=== PATIENT | female | born 1995 | race Caucasian/White ===

== ENCOUNTER 2016-11-15 01:32 | Emergency (ER) | payer OTHER ==
[~2016-11-15] VITALS: Ht 152.4 cm; Wt 59.0 kg
--- NOTE | 2016-11-15 02:40 | REPUSA ---
CLINICAL HISTORY: Facial numbness. TECHNIQUE: Multiple axial brain CT scan sections were obtained from base to vertex without contrast a dministration. COMMENTS: The study shows normal configuration of sella turcica. There are no intra or extra-axial collections. There is no mass effect or midline shift. There is no evidence of hematoma formation. No hydrocephal us is present. No abnormal calcifications are noted. No significant abnormalities are seen either in the posterior fossa or supratentorial compartment. Mild chronic mucosal inflammatory changes of the ethmoid air cells. The sinuses and mastoid air cells are patent. IMPRESSION: Mild chronic mucosal inflammatory changes of the ethmoid air cells. No evidence of acute intracranial pathology. Thank you for your kind referral of this patient.
[2016-11-15 03:13] VITALS: BP 120/72
== END 2016-11-15 03:14 | disposition home or self-care (01) ==
LOC: M ED 02:39
DX: R20.8 Other disturbances of skin sensation (principal); F32.9 Major depressive disorder, single episode, unspecified; F41.9 Anxiety disorder, unspecified; F19.10 Other psychoactive substance abuse, uncomplicated; F17.200 Nicotine dependence, unspecified, uncomplicated; Z88.1 Allergy status to other antibiotic agents

== ENCOUNTER 2017-01-03 00:52 | Emergency (ER) | payer MEDICAID, OTHER ==
[~2017-01-03] VITALS: Ht 152.4 cm; Wt 70.0 kg
[2017-01-03] MEDS ORDERED: ACETAMINOPHEN TAB 650MG DOSE (2X325MG) As Ordered ONE (03:52)
[2017-01-03] MEDS ORDERED: ACETAMINOPHEN TAB 650MG DOSE (2X325MG) PO ONE (04:00)
[2017-01-03] MEDS ORDERED: NS 1,000 ML IV ONE (04:45)
[2017-01-03] MEDS ORDERED: KETOROLAC 30 MG/ML VIAL (J1885) IV ONE (04:45)
[2017-01-03] MEDS ORDERED: CIPROFLOXACIN 400 MG in APPROPRIATE DILUENT 1 EA IV ONE (04:45)
[2017-01-03] MEDS ORDERED: ONDANSETRON 4MG/2ML VIAL (J2405) IV ONE (04:45)
[2017-01-03 05:48] LABS: BASO # 0.1 K/mm3 (0.0-0.2); BASO % 0.3 % (0.0-1.0); EOS # 0.4 K/mm3 (0.0-0.50); EOS % 1.7 % (0.0-3.0); LARGE UNSTAINED CELL # 0.1 K/mm3 (0.0-0.4); LARGE UNSTAINED CELL % 0.6 % (0.0-4.0); LYMPH # 1.4 K/mm3 (1.5-6.5); LYMPH % 6.3 % (24.0-44.0); MEAN CORPUSCULAR HEMOGLOBIN 31.8 pg (27.0-33.0); MEAN CORPUSCULAR HGB CONC 33.4 g/dl (32.0-36.5); MEAN CORPUSCULAR VOLUME 95.2 fl (80.0-96.0); MONO % 4.3 % (0.0-5.0); NEUTROPHILS # 19.9 K/mm3 (1.8-7.7); NEUTROPHILS % 86.9 % (36.0-66.0); PLATELET COUNT, AUTOMATED 155 k/mm3 (150-450); RED CELL DISTRIBUTION WIDTH 12.9 % (11.5-14.5)
[2017-01-03 06:07] LABS: ALBUMIN 3.7 GM/DL (3.2-5.2); ALBUMIN/GLOBULIN RATIO 1.23 (1.00-1.93); ALKALINE PHOSPHATASE 61 U/L (45-117); ALT/SGPT 15 U/L (12-78); ANION GAP 10 MEQ/L (8-16); AST/SGOT 28 U/L (15-37); BILIRUBIN,DIRECT 0.1 MG/DL (0.0-0.2); BILIRUBIN,TOTAL 0.8 MG/DL (0.2-1.0); BLOOD UREA NITROGEN 15 MG/DL (7-18); CARBON DIOXIDE LEVEL 22 MEQ/L (21-32); CHLORIDE LEVEL 106 MEQ/L (98-107); CREATININE FOR GFR 0.67 MG/DL (0.55-1.02); GLOMERULAR FILTRATION RATE > 60.0 (>60); GLUCOSE, FASTING 93 MG/DL (70-105); POTASSIUM SERUM 3.9 MEQ/L (3.5-5.1); SODIUM LEVEL 138 MEQ/L (136-145); TOTAL PROTEIN 6.7 GM/DL (6.4-8.2)
[2017-01-03] MEDS ORDERED: cefTRIAXone SOD 1 GM in D5W MINI-BAG PLUS 50 ML IV ONE (07:15)
[2017-01-03] MEDS ORDERED: metroNIDAZOLE (FLAGYL) 500 MG TAB PO ONE (07:15)
[2017-01-03] MEDS ORDERED: DOXYCYCLINE HYCLATE 100 MG TAB PO ONE (07:15)
--- NOTE | 2017-01-03 07:20 | REPUSA ---
CLINICAL HISTORY: Abdominal pain. TECHNIQUE: Multiple axial, sagittal and coronal CT images were obtained through the abdomen and pelvi s without administration of oral or IV contrast material. COMMENTS: The liver is mildly enlarged without mass or defect. There is no intra or extrahepatic biliary ductal dilatation. The spleen is normal. The gallbladder is within normal limits. The pancreas is of normal contour and attenuation characteristics. There is no evidence of adrenal mass. Mild right hydroureteronephrosis. Right perinephric fat stranding. Mildly thickened bladder. 4.8 cm left ovarian cyst. No renal or ureteral calculi are identified. There is no left hydroureter or hydronephrosis. There is no evidence for appendicitis. There is no bowel wall thickening. No evidence for small or la rge bowel obstruction. There is no evidence of abdominal ascites or lymphadenopathy. There is no evidence of intrinsic or extrinsic bladder mass. There is no pelvic ascites or lymphadeno [place]. Images of the lung bases show no evidence of pleural or parenchymal mass. There are no pleural effusions. The bony structures are free of lytic or blastic lesions. IMPRESSION: Mild right hydroureteronephrosis. Right perinephric fat stranding. Recent passage of a calculus versus an ascending urinary tract infection. Mildly thickened bladder. Underdistention versus cystitis. 4.8 cm left ovarian cyst. Moderate large bowel fecal stasis. Thank you for your kind referral of this patient.
[2017-01-03] MEDS ORDERED: CIPR-249 PO (07:43)
[2017-01-03 07:51] VITALS: BP 92/52
== END 2017-01-03 07:54 | disposition home or self-care (01) ==
LOC: M ED 01:47
DX: N12 Tubulo-interstitial nephritis, not specified as acute or chronic (principal); N13.30 Unspecified hydronephrosis; N83.292 Other ovarian cyst, left side; R19.5 Other fecal abnormalities; Z88.1 Allergy status to other antibiotic agents
CPT/HCPCS: 36415; 74176; 80048; 80076; 81001; 81025; 83605; 83690; 85025; 87040; 93041; 96361; 96374; 96375; 99284; J0744; J1885; J2405

== ENCOUNTER 2017-02-15 10:36 | Emergency (ER) | payer OTHER ==
[~2017-02-15] VITALS: Ht 152.4 cm; Wt 59.0 kg
[~2017-02-15 10:36] MED LIST: CIPR-249 PO
[2017-02-15] MEDS ORDERED: BACT800T5 (10:54)
[2017-02-15] MEDS ORDERED: HYDR1CRE (10:54)
[2017-02-15] MEDS ORDERED: hydroxyzine (10:54)
[2017-02-15] MEDS ORDERED: Debrox (10:54)
[2017-02-15 12:12] LABS: CONTROL LINE UCG INT CTR LINE PRESENT
[2017-02-15] MEDS ORDERED: DIFL150T PO (14:02)
[2017-02-15] MEDS ORDERED: MACR100C43 PO (14:02)
[2017-02-15 14:13] VITALS: BP 143/67
== END 2017-02-15 14:16 | disposition home or self-care (01) ==
LOC: M ED 10:36
DX: N39.0 Urinary tract infection, site not specified (principal); H61.23 Impacted cerumen, bilateral; J45.909 Unspecified asthma, uncomplicated; D64.9 Anemia, unspecified; F41.9 Anxiety disorder, unspecified; F32.9 Major depressive disorder, single episode, unspecified; F17.210 Nicotine dependence, cigarettes, uncomplicated; Z88.1 Allergy status to other antibiotic agents

== ENCOUNTER 2017-02-15 20:38 | Emergency (ER) | payer OTHER ==
[~2017-02-15] VITALS: Ht 152.4 cm; Wt 55.0 kg
[2017-02-15 20:38] VITALS: BP 137/95
[~2017-02-15 20:38] MED LIST changes: +BACT800T5; +DIFL150T PO; +Debrox; +HYDR1CRE; +MACR100C43 PO; +hydroxyzine
== END 2017-02-15 22:32 | disposition home or self-care (01) ==
LOC: M ED 20:38
DX: R21 Rash and other nonspecific skin eruption (principal); G43.909 Migraine, unspecified, not intractable, without status migrainosus; J45.909 Unspecified asthma, uncomplicated; D64.9 Anemia, unspecified; F41.9 Anxiety disorder, unspecified; F42.9 Obsessive-compulsive disorder, unspecified; Z88.1 Allergy status to other antibiotic agents